=== PATIENT | male | born 1985 | race Caucasian/White ===

== ENCOUNTER 2017-06-11 10:22 | Emergency (ER) | payer SELFPAY ==
[2017-06-11 10:36] VITALS: BP 151/90; PULSE 89; TEMP 99.2; BMI 33.5
[2017-06-11] MEDS ORDERED: IBUPROFEN 600 MG TABLET (FP) PO ONE ×2 (13:09→13:16)
--- NOTE | 2017-06-11 13:15 | PDOC ---
History of Present Illness - General Chief Complaint: Ear Problem Stated Complaint: LT EAR PAIN Time Seen by Provider: 06/11/17 12:27 History Source: Patient Exam Limitations: No Limitations - History of Present Illness Initial Comments: 06/11/17 13:09 32 year old male with no medical or surgical history present with pain in right ear x 3 days. Reports no use of q-tip or other aparatus in ear. Denies fever chills or decrease hearing. States swelling and pain in right ear. Timing/Duration: other (3 days) Severity: moderate Modifying Factors: improves with: medication Associated Symptoms: denies: fever/chills Aspirin Received prior to arrival: No: no aspirin today Asa Contraindications(Core Measure): Yes: Allergy Past History - Travel Traveled outside of the country in the last 30 days: No Close contact w/someone who was outside of country & ill: No - Past Medical History Allergies/Adverse Reactions: Allergies Allergy/AdvReac Type Severity Reaction Status Date / Time Penicillins Allergy Verified 06/11/17 10:35 Home Medications: Ambulatory Orders Cefdinir [Omnicef -] 300 mg PO BID #20 capsule 06/11/17 COPD: No - Suicide/Smoking/Psychosocial Hx Smoking History: Never smoked Review of Systems - Review of Systems Able to Perform ROS?: Yes Is the patient limited E[place]orean proficient: No Constitutional: No: Chills, Fever HEENTM: Yes: Ear Pain Respiratory: No: Cough, Orthopnea, Wheezing Cardiac (ROS): No: Chest Pain, Syncope ABD/GI: No: Difficulty Swallowing, Nausea, Vomiting, Indigestion : No: Burning, Hematuria Musculoskeletal: No: Gout, Muscle Weakness Integumentary: No: Bruising, Erythema Neurological: No: Headache, Dizziness Endocrine: No: See HPI, Intolerance to Heat *Physical Exam - Vital Signs Last Vital Signs Temp Pulse Resp BP Pulse Ox 99.2 F 89 20 151/90 97 06/11/17 10:29 06/11/17 10:29 06/11/17 10:29 06/11/17 10:29 06/11/17 10:29 - Physical Exam General Appearance: Yes: Nourished, Appropriately Dressed HEENT: positive: EOMI, TM Dull Neck: positive: Supple. negative: Lymphadenopathy (R), Lymphadenopathy (L) Respiratory/Chest: positive: Lungs Clear Cardiovascular: positive: Regular Rhythm, Regular Rate, S1, S2 Medical Decision Making - Medical Decision Making 06/11/17 13:11 32 year old male with no medical or surgical history with right otitis media analgesia tx with antibiotics *DC/Admit/Observation/Transfer Diagnosis at time of Disposition: Otitis media Qualifiers: Otitis media type: suppurative Chronicity: acute Laterality: right Recurrence: not specified as recurrent Spontaneous tympanic membrane rupture: with spontaneous rupture Qualified Code(s): H66.011 - Acute suppurative otitis media with spontaneous rupture of ear drum, right ear - Discharge Dispostion Disposition: HOME Condition at time of disposition: Good - Prescriptions Prescriptions: Cefdinir [Omnicef -] 300 mg PO BID #20 capsule - Referrals - Patient Instructions Printed Discharge Instructions: Middle Ear Infection Additional Instructions: Please do not use anything in your ear. Take medication as prescribed until completed. Please follow up with primary physician when medication is completed. - Post Discharge Activity Forms/Work/School Notes: Back to Work
== END 2017-06-11 13:18 | disposition home or self-care (01) ==
LOC: JERFT 10:22
DX: H66.011 Acute suppurative otitis media with spontaneous rupture of ear drum, right ear (principal)
CPT/HCPCS: 99281-25